=== PATIENT | male | born 1975 | race Caucasian/White ===

== ENCOUNTER → 2017-05-16 | Outpatient (CLI) | payer OTHER ==
[2017-05-16 14:15] LABS: CH 30.8; CHCM 34.6; HCT 40.9 % (39.0-53.0); HGB 13.7 gm/dL (13.0-17.5); MCH 29.9 pg (25.0-35.0); MCHC 33.5 g/dL (31.0-37.0); MCV 89.4 fL (80.0-100.0); Mean Platelet Volume 7.9; RBC 4.57 m/uL (4.30-5.90); RDW 13.6 % (11.5-15.5); WBC 4.4 k/uL (3.8-10.6)
--- NOTE | 2017-05-16 14:27 | CT ---
EXAMINATION TYPE: CT soft tissue neck w con DATE OF EXAM: 05/16/2017 2:08 PM COMPARISON: NONE HISTORY: Patient complains of neck pain, dysphagia, weight loss, and fatigue. CT DLP: 705 mGycm Automated exposure control for dose reduction was used. CONTRAST: CT scan of the neck is performed following with IV Contrast, patient injected with 100 mL of Omnipaqu e 300. Axial images are obtained, coronal and sagittal reformatted images are reviewed. FINDINGS: Shotty adenopathy noted throughout the neck. Oropharynx and nasopharynx are symmetric. Vocal cords have a normal appearance. Base of the tongue is symmetric. Parotid and submandibular glands have a normal appearance. Vasculature enhances normally. Osseous structures intact. Intracranial and intraorbital structures are symmetric. Thyroid enhances homogeneously. IMPRESSION: 1. No acute process.
[2017-05-16 16:02] LABS: ALT 32 U/L (21-72); AST 21 U/L (17-59); Alkaline Phosphatase 54 U/L (38-126); Anion Gap 12 mmol/L; Blood Urea Nitrogen 16 mg/dL (9-20); Calcium 9.9 mg/dL (8.4-10.2); Carbon Dioxide 25 mmol/L (22-30); Chloride 103 mmol/L (98-107); Glucose 94 mg/dL (74-99); Non-African American GFR(MDRD) >60 (>60 ml/min/1.73 sqM); Potassium 4.1 mmol/L (3.5-5.1); Sodium 140 mmol/L (137-145); Total Bilirubin 0.5 mg/dL (0.2-1.3); Total Protein 7.5 g/dL (6.3-8.2)
[2017-05-16 16:06] LABS: Erythrocyte Sedimentation Rate 7 mm/hr (0-15)
[2017-05-16 16:45] LABS: Vitamin B12 487 pg/mL (239-931)
== END ==
LOC: RADCTMAIN 13:24
PROVIDERS: ATTEND Internal Medicine
DX: R59.0 Localized enlarged lymph nodes (principal); R63.4 Abnormal weight loss; R53.83 Other fatigue
CPT/HCPCS: 84439; 80053; 80074; 85652; 82607; 84443; 85027; 86308; 70491; 36415; Q9967